=== PATIENT | male | born 1950 | race Two or more races ===

== ENCOUNTER 2018-01-15 14:19 | Emergency (ER) | payer OTHER ==
[~2018-01-15] VITALS: Ht 167.6 cm; Wt 68.0 kg
== END 2018-01-15 19:23 | disposition designated cancer center or children's hospital (05) ==
LOC: ER 14:19 → CPU-OBS 14:21 → ER 14:21
DX: I21.29 ST elevation (STEMI) myocardial infarction involving other sites (principal)
CPT/HCPCS: G0378; G0379; 93005

== ENCOUNTER → 2019-10-21 | Outpatient (CLI) | payer OTHER | END | disposition home or self-care (01) | LOC: RX STUDY 08:21 | PROVIDERS: ATTEND Internal Medicine Gastroenterology | DX: R13.19 Other dysphagia (principal) ==